=== PATIENT | male | born 1955 ===

== ENCOUNTER 2019-04-04 15:01 | Inpatient (IN) | payer MEDICARE ==
[~2019-04-04 15:01] MED LIST: Benzocaine 20% Spray 60 ML CAN ONE
[2019-04-04 15:18] LABS: Actual Bicarbonate (HCO3a) 21.2 mEq/L (22-28); Analyzer IN Cardio ER; Base Excess (BEa) -3.9 mEq/L (-2.0 to +3.0); CO2 Tension 39.1 mmHg (35.0-45.0); Calcium, Ionized 1.13 mmol/L (1.12-1.30); Carboxyhemoglobin (COHb) 1.9 gm% (0.0-3.0); Hemoglobin (Hb) 13.8 g/dL (14.0-18.0); O2 Tension (PaO2) 81.5 mmHg (> 80.0); Potassium - ABG Lab 3.26 mmol/L (3.70-5.30); pH, Arterial 7.35 (7.35-7.45)
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
[2019-04-04 15:22] LABS: #Eosinphils 0.1 thou/uL (0.0-0.7); #Lymphocytes 0.9 thou/uL (1.20-3.40); #Monocytes 0.2 thou/uL (0.11-0.59); #Neutrophils 3.3 thou/uL (1.40-6.50); %Basophils 0.3 % (0.0-1.0); %Eosinophils 1.5 % (0.0-10.0); %Neutrophils 74.2 % (42.0-75.0); Hemoglobin 13.4 g/dL (14.0-18.0); Mean Corpuscular Hemoglobin 35.3 pg (27.0-31.0); Mean Platelet Volume 7.7 fL (7.4-10.4); Platelet Count 120 thou/uL (130-400); RBC Distribution Width 13.6 % (11.5-14.5); Red Blood Cell (RBC) Count 3.81 mill/uL (4.70-6.10); White Blood Cell (WBC) Count 4.4 thou/uL (4.8-10.8)
[2019-04-04 15:22] LABS: Puncture Site RRA
[2019-04-04 15:23] LABS: ALV-art Gradient 97.785 (0-20)
[2019-04-04 15:44] LABS: ALT (SGPT) 31 U/L (8-55); AST (SGOT) 64 U/L (5-34); Albumin 3.2 g/dL (3.4-4.8); Alcohol 306 mg/dL (Less than 10); Alkaline Phosphatase 73 U/L (40-150); Anion Gap 16 mmol/L (10-20); BUN (Urea Nitrogen) 9 mg/dL (8.4-25.7); Bilirubin, Total 1.6 mg/dL (0.2-1.2); CK (CPK) 278 U/L (30-200); Calc. Creatinine Clearance 0 mL/min (70-130); Calcium 8.9 mg/dL (7.8-10.44); Carbon Dioxide 20 mmol/L (23-31); Chloride 101 mmol/L (98-107); Estimated GFR-MDRD 72; Globulin 3.4 g/dL (2.4-3.5); Glucose 129 mg/dL (80-115); Potassium 3.3 mmol/L (3.5-5.1); Protein, Total 6.6 g/dL (5.8-8.1); Sodium 134 mmol/L (136-145)
[2019-04-04] MEDS ORDERED: Acetaminophen 325 MG/10.15 ML UDCUP PO PRN (16:28)
[2019-04-04] MEDS ORDERED: CCU Electrolyte Replacement 1 EACH IVPB ONE (16:28)
[2019-04-04] MEDS ORDERED: Bisacodyl 5 MG TAB PO PRN (16:28)
[2019-04-04] MEDS ORDERED: Potassium Chloride 20 MEQ TAB PO PRN (17:31)
[2019-04-04] MEDS ORDERED: Magnesium 2 GM/50 ML 2 GM in Premix Bag 1 BAG IVPB PRN (17:31)
[2019-04-04] MEDS ORDERED: Potassium Chloride 40 MEQ in Sodium Chloride 0.9% 250 ML 250 ML IVPB PRN (17:31)
[2019-04-04] MEDS ORDERED: Potassium Phosphate 15 MMOL in Sodium Chloride 0.9% 250 ML 250 ML IV PRN (17:31)
[2019-04-04] MEDS ORDERED: Potassium Phosphate 9 MMOL in Sodium Chloride 0.9% 100 ML IVPB PRN (17:31)
[2019-04-04] MEDS ORDERED: Potassium Phosphate 12 MMOL in Sodium Chloride 0.9% 250 ML 250 ML IV PRN (17:31)
[2019-04-04] MEDS ORDERED: Potassium Chloride 40 MEQ in Premix Bag 1 BAG IVPB PRN (17:31)
[2019-04-04] MEDS ORDERED: PHOS-NAK 1 PKT PACK PO PRN ×2 (17:31)
[2019-04-04] MEDS ORDERED: Magnesium Oxide 400 MG TAB PO PRN ×2 (17:31)
[2019-04-04] MEDS: Sodium Chloride 0.9% 1,000 ML IV SCH (18:00)
[2019-04-04] MEDS: Piperacillin/Tazobactam 4.5 GM in Sodium Chloride 0.9% 100 ML IVPB SCH ×2 (19:23→23:37)
[2019-04-04 20:16] LABS: Lactic Acid 3.9 mmol/L (0.5-2.2)
[2019-04-04] MEDS ORDERED: Acetaminophen 650 MG Suppository PR PRN (23:31)
[2019-04-04] MEDS: Vancomycin HCl 1 GM in Premix Bag 1 BAG IVPB SCH (23:38)
[2019-04-04] MEDS: Famotidine/PF 20 mg/2ml Vial SLOW IVP SCH (23:38)
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
[2019-04-05] MEDS: Piperacillin/Tazobactam 4.5 GM in Sodium Chloride 0.9% 100 ML IVPB SCH ×4 (06:29→23:41)
[2019-04-05 06:33] LABS: ALT (SGPT) 30 U/L (8-55); AST (SGOT) 58 U/L (5-34); Albumin 2.8 g/dL (3.4-4.8); Alkaline Phosphatase 42 U/L (40-150); Anion Gap 14 mmol/L (10-20); BUN (Urea Nitrogen) 11 mg/dL (8.4-25.7); Bilirubin, Total 2.4 mg/dL (0.2-1.2); Calc. Creatinine Clearance 116 mL/min (70-130); Calcium 8.1 mg/dL (7.8-10.44); Carbon Dioxide 17 mmol/L (23-31); Chloride 107 mmol/L (98-107); Estimated GFR-MDRD 84; Globulin 2.7 g/dL (2.4-3.5); Glucose 149 mg/dL (80-115); Potassium 3.9 mmol/L (3.5-5.1); Protein, Total 5.5 g/dL (5.8-8.1); Sodium 134 mmol/L (136-145)
[2019-04-05] MEDS: Famotidine/PF 20 mg/2ml Vial SLOW IVP SCH ×2 (09:51→20:48)
[2019-04-05] MEDS: Enoxaparin Sodium 40 MG/0.4 ML SYRINGE SC SCH (09:52)
[2019-04-05] MEDS: Vancomycin HCl 1 GM in Premix Bag 1 BAG IVPB SCH ×2 (09:53→20:47)
--- NOTE | 2019-04-05 13:48 | PDOC.PN ---
- Subjective Encounter Start Date: 04/05/19 Encounter Start Time: 10:15 Subjective: pt up in chair wants to go home - Objective Resuscitation Status - Order Detail: 04/04/19 17:50 Resuscitation Status Routine Resuscitation Status: FULL: Full Resuscitation Vital Signs & Weight: Vital Signs (12 hours) Temp Pulse Resp Pulse Ox 04/05/19 12:49 81 24 H 100 04/05/19 12:00 98.6 F 04/05/19 08:00 98.8 F 20 04/05/19 07:41 100 04/05/19 06:23 90 100 04/05/19 06:21 80 20 100 04/05/19 06:00 22 H 04/05/19 04:00 99.3 F 20 04/05/19 02:00 21 H Weight Admit Weight 217 lb 9.54 oz Weight 219 lb 15.834 oz Most Recent Monitor Data Heart Rate from ECG 85 NIBP 128/61 NIBP BP-Mean 83 Respiration from ECG 19 SpO2 100 I&O: 04/04/19 04/05/19 04/06/19 06:59 06:59 06:59 Intake Total 1307 720 Output Total 475 200 Balance 832 520 Result Diagrams: 04/04/19 15:09 04/05/19 05:43 Phys Exam - Physical Examination Neck: no nodes, no JVD, supple, full ROM Respiratory: no wheezing, no rales, no rhonchi, wheezing present, clear to auscultation bilateral Cardiovascular: RRR, no significant murmur, no rub, gallop, irregular Gastrointestinal: soft, non-tender, no distention, positive bowel sounds Dx/Plan (1) Acute respiratory failure with hypoxia Code(s): J96.01 - ACUTE RESPIRATORY FAILURE WITH HYPOXIA Status: Acute (2) Aspiration pneumonia Code(s): J69.0 - PNEUMONITIS DUE TO INHALATION OF FOOD AND VOMIT Status: Acute (3) Elevated LFTs Code(s): R94.5 - ABNORMAL RESULTS OF LIVER FUNCTION STUDIES Status: Acute (4) Alcohol abuse Code(s): F10.10 - ALCOHOL ABUSE, UNCOMPLICATED Status: Acute - Plan will continue iv abx for now -: pt wants to go home, i do not think he is ready -: will continue to monitor. pt states he has been dx with cirrhosis many -: years back. * . Review of Systems - Review of Systems Respiratory: negative: Cough, Dry, Shortness of Breath, Hemoptysis, SOB with Excertion, Pleuritic Pain, Sputum, Wheezing Cardiovascular: negative: chest pain, palpitations, orthopnea, paroxysmal nocturnal dyspnea, edema, light headedness, other - Medications/Allergies Allergies/Adverse Reactions: Allergies Allergy/AdvReac Type Severity Reaction Status Date / Time No Known Allergies Allergy Verified 04/04/19 20:52 Medications: Current Medications Acetaminophen (Tylenol Elixir) 650 mg PO Q6H PRN PRN Reason: Fever > 101 or Mild Pain Acetaminophen (Tylenol) 650 mg PO Q4H PRN PRN Reason: Headache/Fever/Mild Pain (1-3) Acetaminophen (Tylenol) 650 mg MI Q4H PRN PRN Reason: Headache/Fever or Pain Albuterol/Ipratropium (Duoneb) 3 ml NEB [id number] PRN PRN Reason: SOB &/or Wheezing Albuterol/Ipratropium (Duoneb) 3 ml NEB [id number] [facility] Last Admin: 04/05/19 12:49 Dose: 3 ml Alprazolam (Xanax) 0.25 mg PO NOW [facility] Stop: 04/05/19 16:00 Bisacodyl (Dulcolax) 10 mg PO DAILYPRN PRN PRN Reason: Constipation Enoxaparin Sodium (Lovenox) 40 mg SC 0900 [facility] Last Admin: 04/05/19 09:52 Dose: 40 mg Famotidine (Pepcid) 20 mg SLOW IVP Q12HR [facility] Last Admin: 04/05/19 09:51 Dose: 20 mg Piperacillin Sod/Tazobactam (Sod 4.5 gm/ Sodium Chloride) 100 mls @ 200 mls/hr IVPB Q6HR [facility] Last Admin: 04/05/19 12:16 Dose: 100 mls Vancomycin HCl 1 gm/ Device 200 mls @ 200 mls/hr IVPB Q12HR [facility] Last Admin: 04/05/19 09:53 Dose: 200 mls Potassium Chloride 40 meq/ (Sodium Chloride) 270 mls @ 135 mls/hr IVPB ASDIR PRN PRN Reason: FOR SERUM K+ 2.5 - 3.5 Potassium Chloride 40 meq/ (Device) 100 mls @ 50 mls/hr IVPB ASDIR PRN PRN Reason: FOR SERUM K+ 2.5 - 3.5 Magnesium Sulfate 1 gm/ Sodium (Chloride) 102 mls @ 102 mls/hr IV PRN PRN PRN Reason: MAG LEVEL 1.4 - 2.0 Magnesium Sulfate 2 gm/ Device 50 mls @ 50 mls/hr IVPB ASDIR PRN PRN Reason: MAGNESIUM < 1.4 Potassium Phosphate 9 mmol/ (Sodium Chloride) 103 mls @ 25.75 mls/hr IVPB ASDIR PRN PRN Reason: Phosphate 1.0-1.8 Potassium Phosphate 12 mmol/ (Sodium Chloride) 254 mls @ 63.5 mls/hr IV ASDIR PRN PRN Reason: Serum phosphate 0.5-0.9 Potassium Phosphate 15 mmol/ (Sodium Chloride) 255 mls @ 63.75 mls/hr IV ASDIR PRN PRN Reason: Serum Phos < 0.5 Sodium Chloride (Normal Saline 0.9%) 1,000 mls @ 50 mls/hr IV .Q20H [facility] Last Admin: 04/04/19 18:00 Dose: 1,000 mls Magnesium Oxide (Magnesium Oxide) 400 mg PO BIDPRN PRN PRN Reason: FOR SERUM MAG 1.4 - 2.0 Magnesium Oxide (Magnesium Oxide) 800 mg PO PRN PRN PRN Reason: FOR SERUM MAG < 1.4 Miscellaneous Medication (Phos-Nak) 1 pkt PO TIDPRN PRN PRN Reason: FOR PHOS LEVEL 1.0 - 1.8 Miscellaneous Medication (Phos-Nak) 2 pkt PO TIDPRN PRN PRN Reason: FOR PHOS LEVEL 0.5 - 1.0 Nicotine (Nicoderm Patch) 14 mg TD Q24HR [facility] Potassium Chloride (K-Dur) 40 meq PO ASDIR PRN PRN Reason: FOR SERUM K+ 2.5 - 3.5 Potassium Chloride (Klor-Con) 40 meq PER TUBE ASDIR PRN PRN Reason: FOR SERUM K+ 2.5-3.5
[2019-04-05] MEDS ORDERED: ALPRAZolam 0.25 MG TAB PO SCH (14:00)
[2019-04-05] MEDS: Nicotine 14 MG PATCH TD SCH (14:44)
[2019-04-05] MEDS: Sodium Chloride 0.9% 1,000 ML IV SCH (14:48)
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
[2019-04-05] MEDS: Acetaminophen 325 MG TAB PO PRN (20:06)
[2019-04-05] MEDS ORDERED: Lorazepam 1 MG TAB PO PRN (22:52)
[2019-04-05] MEDS: Chloraseptic Spray 180 ml Bottle PO PRN (23:42)
[2019-04-06] MEDS: Sodium Chloride 0.9% 1,000 ML IV SCH ×2 (02:49→14:08)
[2019-04-06] MEDS: Piperacillin/Tazobactam 4.5 GM in Sodium Chloride 0.9% 100 ML IVPB SCH ×4 (06:06→23:59)
[2019-04-06] MEDS ORDERED: Lorazepam 2 MG/ML VIAL SLOW IVP PRN (06:41)
[2019-04-06 06:58] LABS: ALT (SGPT) 26 U/L (8-55); AST (SGOT) 55 U/L (5-34); Albumin 2.6 g/dL (3.4-4.8); Alkaline Phosphatase 39 U/L (40-150); Anion Gap 12 mmol/L (10-20); BUN (Urea Nitrogen) 14 mg/dL (8.4-25.7); Bilirubin, Total 3.6 mg/dL (0.2-1.2); Calc. Creatinine Clearance 130 mL/min (70-130); Calcium 8.2 mg/dL (7.8-10.44); Carbon Dioxide 20 mmol/L (23-31); Chloride 103 mmol/L (98-107); Estimated GFR-MDRD Greater than 90; Globulin 2.8 g/dL (2.4-3.5); Glucose 129 mg/dL (80-115); Potassium 3.6 mmol/L (3.5-5.1); Protein, Total 5.4 g/dL (5.8-8.1); Sodium 131 mmol/L (136-145)
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
[2019-04-06] MEDS: Vancomycin HCl 1 GM in Premix Bag 1 BAG IVPB SCH ×2 (08:53→21:52)
[2019-04-06] MEDS: Enoxaparin Sodium 40 MG/0.4 ML SYRINGE SC SCH (08:53)
[2019-04-06] MEDS: Spironolactone 100 MG TAB PO SCH (08:53)
[2019-04-06] MEDS: Famotidine/PF 20 mg/2ml Vial SLOW IVP SCH ×2 (08:53→21:53)
[2019-04-06] MEDS: Furosemide 40 MG TAB PO SCH (08:53)
[2019-04-06] MEDS: Chloraseptic Spray 180 ml Bottle PO PRN (09:12)
[2019-04-06 12:00] LABS: Actual Bicarbonate (HCO3a) 19.6 mEq/L (22-28); Base Excess (BEa) -2.9 mEq/L (-2.0 to +3.0); Hemoglobin (Hb) 12.6 g/dL (14.0-18.0); Potassium - ABG Lab 3.68 mmol/L (3.70-5.30); pH, Arterial 7.46 (7.35-7.45)
[2019-04-06 12:01] LABS: O2 Tension (PaO2) 47.1 mmHg (> 80.0)
[2019-04-06 12:02] LABS: Puncture Site RBA
[2019-04-06] MEDS ORDERED: Furosemide 20 MG/2 ML VIAL SLOW IVP SCH (12:30)
[2019-04-06] MEDS ORDERED: Propofol 1,000 MG/100 ML VIAL IV ONE ×2 (12:43→14:05)
[2019-04-06] MEDS ORDERED: Midazolam HCl 2 mg/2 ml Vial ONE ×2 (12:53→13:14)
[2019-04-06] MEDS ORDERED: Rocuronium Bromide 10 MG/ML (10ML VIAL) ONE (13:22)
[2019-04-06 14:38] LABS: Actual Bicarbonate (HCO3a) 22.8 mEq/L (22-28); Base Excess (BEa) -4.9 mEq/L (-2.0 to +3.0); CO2 Tension 52.7 mmHg (35.0-45.0); Calcium, Ionized 1.15 mmol/L (1.12-1.30); Carboxyhemoglobin (COHb) 1.7 gm% (0.0-3.0); O2 Tension (PaO2) 65.7 mmHg (> 80.0); Potassium - ABG Lab 3.57 mmol/L (3.70-5.30)
[2019-04-06 14:45] LABS: pH, Arterial 7.25 (7.35-7.45)
[2019-04-06] MEDS ORDERED: Propofol BOLUS 1,000 MG/100 ML VIAL IV PRN (14:45)
[2019-04-06] MEDS ORDERED: DISCONTINUE PREVIOUS NARCOTIC PAIN MEDICATIONS AND BENZODIAZEPINES FS SCH (14:45)
[2019-04-06] MEDS ORDERED: Fentanyl BOLUS 250 ML IVPB PRN (14:45)
[2019-04-06] MEDS ORDERED: Morphine 2 MG/ML SYRINGE SLOW IVP PRN (14:45)
[2019-04-06 14:46] LABS: ALV-art Gradient 224.925 (0-20); Puncture Site RR
[2019-04-06] MEDS: Lorazepam 2 MG/ML VIAL SLOW IVP PRN (14:49)
[2019-04-06] MEDS ORDERED: Propofol 1,000 MG/100 ML VIAL IV PRN (16:06)
[2019-04-06] MEDS ORDERED: Midazolam HCl 2 mg/2 ml Vial IVP SCH (16:15)
[2019-04-06] MEDS ORDERED: Rocuronium Bromide 50 MG/5 ML VIAL IVP SCH (16:15)
[2019-04-06] MEDS ORDERED: Sodium Chloride 0.9% 2,000 ML IV SCH (16:15)
[2019-04-06] MEDS: Albumin 25% 25 GM/100 ML BOT IVPB SCH ×2 (17:08→23:59)
[2019-04-06] MEDS: fentaNYL Citrate/PF 2,000 MCG in Sodium Chloride 0.9% 60 ML IV SCH (17:18)
[2019-04-06] MEDS: Nicotine 14 MG PATCH TD SCH (17:38)
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
[2019-04-06] MEDS: Acetaminophen 325 MG TAB PO PRN (23:59)
[2019-04-07] MEDS: Propofol 1,000 MG/100 ML VIAL IV PRN (01:40)
[2019-04-07] MEDS ORDERED: Amiodarone 150 MG, Admixture Fee 1 EACH in Dextrose 5% in Water 100 ML IVPB SCH (02:45)
[2019-04-07 02:56] LABS: Band 16 % (5-11); Eosinophils 1 % (0-10); Lymphocytes 9 % (21-51); MDiff Complete? YES; Mean Corpuscular Hemoglobin 35.6 pg (27.0-31.0); Mean Platelet Volume 7.5 fL (7.4-10.4); Monocytes 1 % (0-10); Neutrophil 73 % (42-75); Platelet Count 52 thou/uL (130-400); Platelet Morphology Comment Appears Decreased; RBC Distribution Width 13.9 % (11.5-14.5); Red Blood Cell (RBC) Count 2.82 mill/uL (4.70-6.10); White Blood Cell (WBC) Count 5.6 thou/uL (4.8-10.8)
[2019-04-07] MEDS ORDERED: Magnesium 2 GM/50 ML 2 GM in Premix Bag 1 BAG IVPB SCH (03:00)
[2019-04-07] MEDS ORDERED: Sodium Chloride 0.9% 1,000 ML IV SCH (03:00)
[2019-04-07] MEDS: Amiodarone 450 MG, Admixture Fee 1 EACH in Dextrose 5% in Water 250 ML IVPB SCH (03:05)
[2019-04-07 03:06] LABS: Troponin I 0.016 ng/mL (< 0.028)
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
[2019-04-07] MEDS: Sodium Chloride 0.9% 1,000 ML IV SCH ×3 (03:13→14:23)
[2019-04-07 03:15] LABS: Lactic Acid 1.6 mmol/L (0.5-2.2)
[2019-04-07 03:15] LABS: ALT (SGPT) 18 U/L (8-55); AST (SGOT) 40 U/L (5-34); Albumin 2.9 g/dL (3.4-4.8); Alkaline Phosphatase 26 U/L (40-150); Anion Gap 12 mmol/L (10-20); BUN (Urea Nitrogen) 17 mg/dL (8.4-25.7); Bilirubin, Total 3.9 mg/dL (0.2-1.2); Calc. Creatinine Clearance 126 mL/min (70-130); Carbon Dioxide 21 mmol/L (23-31); Chloride 104 mmol/L (98-107); Estimated GFR-MDRD 89; Globulin 2.4 g/dL (2.4-3.5); Glucose 99 mg/dL (80-115); Potassium 3.2 mmol/L (3.5-5.1); Protein, Total 5.3 g/dL (5.8-8.1); Sodium 134 mmol/L (136-145)
[2019-04-07] MEDS: Piperacillin/Tazobactam 4.5 GM in Sodium Chloride 0.9% 100 ML IVPB SCH ×3 (05:37→17:43)
[2019-04-07] MEDS: Albumin 25% 25 GM/100 ML BOT IVPB SCH ×2 (05:37→11:01)
[2019-04-07 07:05] LABS: Actual Bicarbonate (HCO3a) 22.7 mEq/L (22-28); Base Excess (BEa) -2.5 mEq/L (-2.0 to +3.0); CO2 Tension 41.1 mmHg (35.0-45.0); Carboxyhemoglobin (COHb) 1.7 gm% (0.0-3.0); Hemoglobin (Hb) 10.6 g/dL (14.0-18.0); O2 Tension (PaO2) 74.9 mmHg (> 80.0); Potassium - ABG Lab 3.93 mmol/L (3.70-5.30); pH, Arterial 7.36 (7.35-7.45)
[2019-04-07 07:06] LABS: Puncture Site L.R.
[2019-04-07 07:07] LABS: ALV-art Gradient 444.125 (0-20)
[2019-04-07] MEDS: Enoxaparin Sodium 40 MG/0.4 ML SYRINGE SC SCH (08:19)
[2019-04-07] MEDS: Spironolactone 100 MG TAB PO SCH (08:22)
[2019-04-07] MEDS: Furosemide 40 MG TAB PO SCH (08:23)
[2019-04-07] MEDS: Famotidine/PF 20 mg/2ml Vial SLOW IVP SCH ×2 (08:23→20:49)
[2019-04-07] MEDS: Vancomycin HCl 1 GM in Premix Bag 1 BAG IVPB SCH ×2 (08:23→20:49)
--- NOTE | 2019-04-07 08:49 | RAD ---
CHEST 1 VIEW: HISTORY: Aspiration. Intubation. Followup. FINDINGS: Cardiac silhouette remains predominantly obscured by widespread airspace disease. Density has increa sed slightly. Mediastinum is midline with aortic calcification. The tip of an endotracheal catheter is at the level of the anna. Nasogastric tube descends to the abdomen. No evidence of pneumothorax. Degenerative change of the shoulders. IMPRESSION: 1. Endotracheal catheter tip at the anna. It should probably be withdrawn approximately 3 cm for better positioning. 2. Worsening widespread airspace disease/infiltrate. POS: [facility]
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
[2019-04-07] MEDS: fentaNYL Citrate/PF 2,000 MCG in Sodium Chloride 0.9% 60 ML IV SCH (10:51)
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
[2019-04-07] MEDS: Lorazepam 2 MG/ML VIAL SLOW IVP PRN (15:05)
--- NOTE | 2019-04-07 20:02 | EKG ---
Test Reason : Blood Pressure : / mmHG Vent. Rate : 148 BPM Atrial Rate : 148 BPM P-R Int : 000 ms QRS Dur : 086 ms QT Int : 308 ms P-R-T Axes : -09 -35 056 degrees QTc Int : 483 ms Sinus tachycardia with Premature supraventricular complexes Left axis deviation Abnormal ECG No previous ECGs available Confirmed by MADELYN PRECIADO, DR. Cornejo ([id number]) on 04/07/2019 8:02:19 PM Referred By: Confirmed By:DR. Chantal JOSHI MD
--- NOTE | 2019-04-07 20:04 | EKG ---
Test Reason : Blood Pressure : / mmHG Vent. Rate : 147 BPM Atrial Rate : 136 BPM P-R Int : 000 ms QRS Dur : 086 ms QT Int : 268 ms P-R-T Axes : 000 -29 144 degrees QTc Int : 419 ms Atrial fibrillation with rapid ventricular response with premature ventricular or aberrantly conducte d complexes ST depression, consider subendocardial injury or digitalis effect Nonspecific T wave abnormality , probably digitalis effect Abnormal ECG When compared with ECG of 06-APR-2019 14:34, (Unconfirmed) Atrial fibrillation has replaced Sinus rhythm ST more depressed in Anterior leads Nonspecific T wave abnormality, worse in Anterolateral leads Confirmed by MADELYN PRECIADO, DR. Cornejo ([id number]) on 04/07/2019 8:03:50 PM Referred By: MELQUIADES Confirmed By:DR. Chantal JOSHI MD
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
[2019-04-08] MEDS: Sodium Chloride 0.9% 1,000 ML IV SCH ×3 (00:09→20:59)
[2019-04-08] MEDS: Piperacillin/Tazobactam 4.5 GM in Sodium Chloride 0.9% 100 ML IVPB SCH ×3 (00:09→11:57)
[2019-04-08] MEDS: Amiodarone 450 MG, Admixture Fee 1 EACH in Dextrose 5% in Water 250 ML IVPB SCH ×2 (00:10→11:57)
[2019-04-08] MEDS: Propofol 1,000 MG/100 ML VIAL IV PRN ×2 (02:08→23:39)
[2019-04-08 04:24] LABS: ALT (SGPT) 16 U/L (8-55); AST (SGOT) 50 U/L (5-34); Albumin 3.1 g/dL (3.4-4.8); Alkaline Phosphatase 21 U/L (40-150); Anion Gap 12 mmol/L (10-20); BUN (Urea Nitrogen) 27 mg/dL (8.4-25.7); Bilirubin, Total 7.8 mg/dL (0.2-1.2); Calc. Creatinine Clearance 91 mL/min (70-130); Calcium 8.1 mg/dL (7.8-10.44); Carbon Dioxide 21 mmol/L (23-31); Chloride 105 mmol/L (98-107); Estimated GFR-MDRD 59; Globulin 2.4 g/dL (2.4-3.5); Glucose 127 mg/dL (80-115); Protein, Total 5.5 g/dL (5.8-8.1); Sodium 134 mmol/L (136-145)
[2019-04-08 04:46] LABS: Band 22 % (5-11); Hemoglobin 9.8 g/dL (14.0-18.0); Lymphocytes 6 % (21-51); MDiff Complete? YES; Mean Corpuscular HGB CONC 33.6 g/dL (32.0-36.0); Mean Corpuscular Hemoglobin 35.7 pg (27.0-31.0); Mean Platelet Volume 7.6 fL (7.4-10.4); Monocytes 6 % (0-10); Myelocyte 1 % (0-0); Neutrophil 65 % (42-75); Platelet Count 57 thou/uL (130-400); Platelet Morphology Comment Appears Decreased; RBC Distribution Width 14.2 % (11.5-14.5); Red Blood Cell (RBC) Count 2.73 mill/uL (4.70-6.10); White Blood Cell (WBC) Count 6.5 thou/uL (4.8-10.8)
[2019-04-08] MEDS: Lorazepam 2 MG/ML VIAL SLOW IVP PRN ×3 (07:16→16:20)
[2019-04-08 07:33] LABS: Actual Bicarbonate (HCO3a) 18.5 mEq/L (22-28); Base Excess (BEa) -8.1 mEq/L (-2.0 to +3.0); CO2 Tension 42.2 mmHg (35.0-45.0); Calcium, Ionized 1.12 mmol/L (1.12-1.30); Hemoglobin (Hb) 10.1 g/dL (14.0-18.0); O2 Tension (PaO2) 58.4 mmHg (> 80.0); Potassium - ABG Lab 3.96 mmol/L (3.70-5.30); Puncture Site L.R.; pH, Arterial 7.26 (7.35-7.45)
--- NOTE | 2019-04-08 07:56 | RAD ---
XR Chest 1 View Portable History: [Intubation] Comparison: Radiograph prior day Findings: The patient is intubated with endotracheal tube tip above the anna approximately 1.2 cm. The enteric tube space with tip below diaphragm of the out of field of view. Diffuse airspace opacities are worse. Large effusions. The cardiac silhouette is not well seen. No acute osseous abnormality. Impression: Worsening diffuse airspace opacities which given history suggests noncardiogenic pulmonar y edema.
[2019-04-08 08:27] LABS: Phosphorus 2.8 mg/dL (2.3-4.7)
[2019-04-08] MEDS: Famotidine/PF 20 mg/2ml Vial SLOW IVP SCH ×2 (08:42→20:59)
[2019-04-08] MEDS: Enoxaparin Sodium 40 MG/0.4 ML SYRINGE SC SCH (08:42)
[2019-04-08] MEDS: Vancomycin HCl 1 GM in Premix Bag 1 BAG IVPB SCH ×2 (08:48→20:59)
[2019-04-08] MEDS: fentaNYL Citrate/PF 2,000 MCG in Sodium Chloride 0.9% 60 ML IV SCH (11:32)
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
[2019-04-08] MEDS: Rocuronium Bromide 10 MG/ML (10ML VIAL) IVP PRN (17:50)
[2019-04-08] MEDS: methylPREDNISolone Sod Succ 40 MG VIAL IVP SCH ×2 (18:38→23:39)
[2019-04-08 20:43] LABS: Vancomycin, Trough 22.6 ug/mL
[2019-04-08] MEDS: Meropenem 2 GM in Sodium Chloride 0.9% 100 ML IVPB SCH (21:56)
[2019-04-09] MEDS: Rocuronium Bromide 10 MG/ML (10ML VIAL) IVP PRN ×6 (01:24→23:41)
[2019-04-09 04:20] LABS: ALT (SGPT) 18 U/L (8-55); AST (SGOT) 49 U/L (5-34); Albumin 2.9 g/dL (3.4-4.8); Alkaline Phosphatase 24 U/L (40-150); Anion Gap 15 mmol/L (10-20); BUN (Urea Nitrogen) 47 mg/dL (8.4-25.7); Bilirubin, Total 11.7 mg/dL (0.2-1.2); Calc. Creatinine Clearance 70 mL/min (70-130); Calcium 8.5 mg/dL (7.8-10.44); Carbon Dioxide 18 mmol/L (23-31); Chloride 106 mmol/L (98-107); Estimated GFR-MDRD 42; Globulin 2.7 g/dL (2.4-3.5); Glucose 151 mg/dL (80-115); Protein, Total 5.6 g/dL (5.8-8.1); Sodium 135 mmol/L (136-145)
[2019-04-09] MEDS: methylPREDNISolone Sod Succ 40 MG VIAL IVP SCH ×4 (05:43→23:41)
[2019-04-09] MEDS: Sodium Chloride 0.9% 1,000 ML IV SCH (05:43)
[2019-04-09] MEDS: Meropenem 2 GM in Sodium Chloride 0.9% 100 ML IVPB SCH ×3 (06:04→21:38)
[2019-04-09 06:36] LABS: Actual Bicarbonate (HCO3a) 18.8 mEq/L (22-28); Base Excess (BEa) -7.6 mEq/L (-2.0 to +3.0); CO2 Tension 41.6 mmHg (35.0-45.0); Calcium, Ionized 1.15 mmol/L (1.12-1.30); Carboxyhemoglobin (COHb) 1.7 gm% (0.0-3.0); Hemoglobin (Hb) 10.6 g/dL (14.0-18.0); O2 Tension (PaO2) 83.6 mmHg (> 80.0); Potassium - ABG Lab 3.98 mmol/L (3.70-5.30); pH, Arterial 7.27 (7.35-7.45)
[2019-04-09 06:37] LABS: Puncture Site RRA
[2019-04-09] MEDS: Lorazepam 2 MG/ML VIAL SLOW IVP PRN (07:35)
[2019-04-09] MEDS: Famotidine/PF 20 mg/2ml Vial SLOW IVP SCH ×2 (07:37→07:38)
[2019-04-09] MEDS: Amiodarone 450 MG, Admixture Fee 1 EACH in Dextrose 5% in Water 250 ML IVPB SCH ×2 (07:50→20:38)
[2019-04-09] MEDS: fentaNYL Citrate/PF 2,000 MCG in Sodium Chloride 0.9% 60 ML IV SCH (07:57)
--- NOTE | 2019-04-09 08:17 | RAD ---
XR Chest 1 View Portable History: [Intubated patient] Comparison: Radiograph prior day Findings: Patient is intubated endotracheal tube tip above the anna approximately 3.1 cm. Slight in terval improvement of the airspace opacities. Moderate to large layering pleural effusions. Heart size is similar. Enteric tube tip below diaphragm on the out of field of view. Impression: Mild interval improvement of lung aeration.
[2019-04-09] MEDS: Vancomycin HCl 1 GM in Premix Bag 1 BAG IVPB SCH (08:46)
[2019-04-09] MEDS: Enoxaparin Sodium 40 MG/0.4 ML SYRINGE SC SCH (08:49)
[2019-04-09 12:29] LABS: INR-International Normal Ratio 1.6; PTT 34.6 SEC (22.9-36.1); Prothrombin Time 19.3 SEC (12.0-14.7)
[2019-04-09] MEDS ORDERED: Acetaminophen 650 MG/20.3 ML UDCUP PO PRN (13:00)
[2019-04-09] MEDS ORDERED: Octreotide Acetate 1,250 MCG in Sodium Chloride 0.9% 250 ML 250 ML IVPB SCH (13:00)
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
[2019-04-09] MEDS ORDERED: Sodium Bicarbonate 75 MEQ in Sodium Chloride 0.45% 1,000 ML IV SCH (13:30)
[2019-04-09 13:37] LABS: Lactic Acid 1.9 mmol/L (0.5-2.2)
[2019-04-09 13:39] LABS: Vancomycin, Random 42.3 ug/mL (See Comment)
[2019-04-09] MEDS ORDERED: Furosemide 100 MG/10 ML VIAL SLOW IVP SCH (14:15)
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
[2019-04-09] MEDS: Midodrine HCl 5 MG TAB PO SCH (15:21)
[2019-04-09 17:38] LABS: Bilirubin Moderate (Negative); Blood, Urine Negative (Negative); Clarity CLOUDY (Clear); Glucose, Urine (Dipstick) Negative (Negative); Leukocyte Trace (Negative); Nitrite Negative (Negative); Protein, Urine (Dipstick) Negative (Neg-Trace); Urobilinogen 0.2 mg/dL (0.2-1.0); pH, Urine 5.5 (5.0-9.0)
[2019-04-09 17:40] LABS: Bacteria/HPF None Seen HPF (None Seen); Squamous Epithelial 0-3 HPF (0-3); WBC/HPF 0-3 HPF (0-3)
[2019-04-09 17:42] LABS: Hyaline Casts/LPF 0-3 HYALINE CAST LPF (0-3 Hyaline); Manual Microscopic Reviewed? No Path Casts Seen; Pathc Cast-AUWi Flag 6.66 (0-2.49)
[2019-04-09 17:43] LABS: Urine Culture Reflex Yes Yes
[2019-04-09 17:54] LABS: Legionella Urinary Ag Negative (Negative)
[2019-04-09 17:58] LABS: Creatinine, Urine 112.55 mg/dL (63-166); Protein, Urine Random Quant 22 mg/dL (1-14); Sodium, Urine Less than 20 mmol/L (Not Available); Urea Nitrogen, Random Urine 572 mg/dl
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
[2019-04-09] MEDS: Albumin 25% 25 GM/100 ML BOT IVPB SCH (20:36)
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
[2019-04-10] MEDS: fentaNYL Citrate/PF 2,000 MCG in Sodium Chloride 0.9% 60 ML IV SCH ×2 (04:07→23:51)
[2019-04-10 04:09] LABS: Phosphorus 2.1 mg/dL (2.3-4.7)
[2019-04-10 04:10] LABS: ALT (SGPT) 18 U/L (8-55); AST (SGOT) 47 U/L (5-34); Albumin 3.1 g/dL (3.4-4.8); Alkaline Phosphatase 26 U/L (40-150); Anion Gap 14 mmol/L (10-20); BUN (Urea Nitrogen) 69 mg/dL (8.4-25.7); Bilirubin, Total 12.8 mg/dL (0.2-1.2); Calc. Creatinine Clearance 69 mL/min (70-130); Calcium 8.9 mg/dL (7.8-10.44); Carbon Dioxide 20 mmol/L (23-31); Chloride 106 mmol/L (98-107); Estimated GFR-MDRD 40; Globulin 2.7 g/dL (2.4-3.5); Glucose 173 mg/dL (80-115); Magnesium 2.2 mg/dL (1.6-2.6); Protein, Total 5.8 g/dL (5.8-8.1); Sodium 137 mmol/L (136-145)
[2019-04-10 04:15] LABS: Potassium 2.9 mmol/L (3.5-5.1)
[2019-04-10] MEDS: Lorazepam 2 MG/ML VIAL SLOW IVP PRN ×2 (05:07→17:51)
[2019-04-10] MEDS: Rocuronium Bromide 10 MG/ML (10ML VIAL) IVP PRN ×2 (05:07→21:17)
[2019-04-10] MEDS: Propofol 1,000 MG/100 ML VIAL IV PRN (05:08)
[2019-04-10 05:15] LABS: Band 30 % (5-11); Hemoglobin 10.3 g/dL (14.0-18.0); Lymphocytes 6 % (21-51); MDiff Complete? YES; Macrocytosis SLIGHT = 6-15 cells (100X) (0-5/hpf); Mean Corpuscular HGB CONC 33.9 g/dL (32.0-36.0); Mean Corpuscular Hemoglobin 35.8 pg (27.0-31.0); Mean Platelet Volume 8.8 fL (7.4-10.4); Metamyelocyte 2 % (0-0); Monocytes 6 % (0-10); Myelocyte 1 % (0-0); Neutrophil 55 % (42-75); Nucleated RBC 2 % (0); Platelet Count 72 thou/uL (130-400); Platelet Morphology Comment Appears Decreased; Polychromasia SLIGHT = 2-3 cells (100X) (0-2/hpf); RBC Distribution Width 14.5 % (11.5-14.5); Red Blood Cell (RBC) Count 2.88 mill/uL (4.70-6.10); White Blood Cell (WBC) Count 5.9 thou/uL (4.8-10.8)
[2019-04-10] MEDS: Meropenem 2 GM in Sodium Chloride 0.9% 100 ML IVPB SCH ×3 (05:30→21:11)
[2019-04-10] MEDS: methylPREDNISolone Sod Succ 40 MG VIAL IVP SCH ×4 (05:30→23:29)
[2019-04-10 06:26] LABS: Actual Bicarbonate (HCO3a) 20.3 mEq/L (22-28); Base Excess (BEa) -2.7 mEq/L (-2.0 to +3.0); CO2 Tension 29.3 mmHg (35.0-45.0); Calcium, Ionized 1.16 mmol/L (1.12-1.30); Carboxyhemoglobin (COHb) 1.3 gm% (0.0-3.0); Hemoglobin (Hb) 10.9 g/dL (14.0-18.0); O2 Tension (PaO2) 69.6 mmHg (> 80.0); Potassium - ABG Lab 3.34 mmol/L (3.70-5.30); pH, Arterial 7.46 (7.35-7.45)
[2019-04-10 06:27] LABS: Puncture Site RRA
[2019-04-10 06:28] LABS: ALV-art Gradient 178.975 (0-20)
--- NOTE | 2019-04-10 08:05 | RAD ---
XR Chest 1 View Portable History: [Ventilated patient] Comparison: Radiograph prior day Findings: Continued mild improvement of the diffuse interstitial and alveolar opacities. Layering eff usions are slightly improved bilaterally although moderate effusion does persist. Endotracheal tube tip is in similar position. Enteric tube tip not well seen. Soft tissues are unremarkable. No acute osseous abnormality. Impression: 1. Continued interval improvement of lung aeration. 2. Nonvisualized and enteric tube tip. Abdomen radiograph recommended.
[2019-04-10] MEDS: Albumin 25% 25 GM/100 ML BOT IVPB SCH ×2 (08:55→20:06)
[2019-04-10] MEDS: Famotidine/PF 20 mg/2ml Vial SLOW IVP SCH ×2 (08:55→20:06)
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
[2019-04-10] MEDS ORDERED: Furosemide 100 MG/10 ML VIAL SLOW IVP SCH (10:15)
--- NOTE | 2019-04-10 10:36 | ULT ---
US Abdominal History: Biliary obstruction Comparison: Ultrasound abdomen November 2018 Findings: Real-time grayscale and color evaluation of the abdomen was performed. Visualized portion of pancreas and IVC are unremarkable. Proximal aorta measures up to 3 cm. The hepatic echotexture is coarsened with a nodular contour. Liver measures 16 cm in length. Gallbladder wall thickness is thickened, although circumferential, likely congestive changes. Portal vein has abnormal phasicity with diastolic reversal of flow. Common bile duct measures 5 mm. Right kidney measures 10 x 5.7 x 5 cm the left kidney measures 10.9 x 5.8 x 6.9 cm. Small volume free fluid within the pelvis. Urinary bladder is decompressed with a Coughlin catheter. Impression: 1. Hepatic cirrhosis and portal hypertension. 2. Small volume ascites. 3. Congestive changes of the gallbladder wall. 4. No intrahepatic or extrahepatic biliary dilatation.
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
[2019-04-10] MEDS: Amiodarone 450 MG, Admixture Fee 1 EACH in Dextrose 5% in Water 250 ML IVPB SCH (13:45)
[2019-04-10 16:56] LABS: Anion Gap 14 mmol/L (10-20); BUN (Urea Nitrogen) 77 mg/dL (8.4-25.7); Calc. Creatinine Clearance 79 mL/min (70-130); Calcium 8.5 mg/dL (7.8-10.44); Carbon Dioxide 20 mmol/L (23-31); Chloride 107 mmol/L (98-107); Estimated GFR-MDRD 47; Glucose 181 mg/dL (80-115); Potassium 3.3 mmol/L (3.5-5.1); Sodium 138 mmol/L (136-145)
[2019-04-10] MEDS ORDERED: Spironolactone 100 MG TAB PO SCH (19:45)
[2019-04-10] MEDS: Furosemide 40 MG/4 ML VIAL SLOW IVP SCH (20:06)
[2019-04-10] MEDS: Midodrine HCl 5 MG TAB PO SCH (20:32)
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
[2019-04-11] MEDS: Amiodarone 450 MG, Admixture Fee 1 EACH in Dextrose 5% in Water 250 ML IVPB SCH ×2 (02:28→17:24)
[2019-04-11] MEDS: methylPREDNISolone Sod Succ 40 MG VIAL IVP SCH ×3 (05:00→17:32)
[2019-04-11] MEDS: Meropenem 2 GM in Sodium Chloride 0.9% 100 ML IVPB SCH ×3 (05:00→21:30)
[2019-04-11] MEDS: Propofol 1,000 MG/100 ML VIAL IV PRN (05:01)
[2019-04-11 05:54] LABS: Band 23 % (5-11); Hemoglobin 10.1 g/dL (14.0-18.0); Lymphocytes 5 % (21-51); MDiff Complete? YES; Macrocytosis SLIGHT = 6-15 cells (100X) (0-5/hpf); Mean Corpuscular HGB CONC 34.1 g/dL (32.0-36.0); Mean Corpuscular Hemoglobin 35.8 pg (27.0-31.0); Mean Platelet Volume 8.7 fL (7.4-10.4); Metamyelocyte 2 % (0-0); Monocytes 5 % (0-10); Myelocyte 1 % (0-0); Neutrophil 64 % (42-75); Nucleated RBC 1 % (0); Platelet Count 73 thou/uL (130-400); Platelet Morphology Comment Appears Decreased; RBC Distribution Width 14.9 % (11.5-14.5); Red Blood Cell (RBC) Count 2.82 mill/uL (4.70-6.10); White Blood Cell (WBC) Count 6.6 thou/uL (4.8-10.8)
[2019-04-11 06:27] LABS: ALT (SGPT) 22 U/L (8-55); AST (SGOT) 52 U/L (5-34); Albumin 3.2 g/dL (3.4-4.8); Alkaline Phosphatase 30 U/L (40-150); Anion Gap 11 mmol/L (10-20); BUN (Urea Nitrogen) 78 mg/dL (8.4-25.7); Bilirubin, Total 12.5 mg/dL (0.2-1.2); Calc. Creatinine Clearance 78 mL/min (70-130); Calcium 8.7 mg/dL (7.8-10.44); Carbon Dioxide 25 mmol/L (23-31); Chloride 108 mmol/L (98-107); Estimated GFR-MDRD 48; Globulin 2.5 g/dL (2.4-3.5); Glucose 190 mg/dL (80-115); Potassium 3.1 mmol/L (3.5-5.1); Protein, Total 5.7 g/dL (5.8-8.1); Sodium 141 mmol/L (136-145)
[2019-04-11 06:34] LABS: Actual Bicarbonate (HCO3a) 23.7 mEq/L (22-28); Base Excess (BEa) -0.6 mEq/L (-2.0 to +3.0); CO2 Tension 37.6 mmHg (35.0-45.0); Calcium, Ionized 1.15 mmol/L (1.12-1.30); Carboxyhemoglobin (COHb) 1.3 gm% (0.0-3.0); Hemoglobin (Hb) 10.6 g/dL (14.0-18.0); O2 Tension (PaO2) 69.2 mmHg (> 80.0); Potassium - ABG Lab 3.19 mmol/L (3.70-5.30); pH, Arterial 7.42 (7.35-7.45)
[2019-04-11 06:35] LABS: Puncture Site RRA
[2019-04-11] MEDS: Spironolactone 100 MG TAB PO SCH (07:58)
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
[2019-04-11] MEDS: Famotidine/PF 20 mg/2ml Vial SLOW IVP SCH ×2 (09:23→21:25)
[2019-04-11] MEDS: Metoclopramide HCl 10 MG/2 ML VIAL IVP SCH ×3 (09:23→21:25)
[2019-04-11] MEDS: Furosemide 40 MG/4 ML VIAL SLOW IVP SCH ×2 (09:23→21:25)
[2019-04-11] MEDS: Enoxaparin Sodium 30 MG/0.3 ML SYRINGE SC SCH (09:24)
[2019-04-11] MEDS: Albumin 25% 25 GM/100 ML BOT IVPB SCH (09:36)
[2019-04-11] MEDS: Potassium Chloride 20 MEQ TAB PER TUBE SCH ×3 (09:36→21:25)
--- NOTE | 2019-04-11 09:55 | PRG ---
DATE OF SERVICE: 04/11/2019 A 35 minutes critical care time. SUBJECTIVE: The patient remains intubated on mechanical ventilation. He is currently receiving inverse ratios. OBJECTIVE: VITAL SIGNS: Temperature 98.1, pulse 61, blood pressure 141/70, and O2 saturation 97%. Intake for 24 hours 1315 and output 3065. NEUROLOGIC: He will open his eyes to commands. HEENT: Sclerae slightly icteric. Oropharynx, ET tube in place. NECK: No adenopathy or JVD. LUNGS: Coarse breath sounds bilaterally. CARDIOVASCULAR: S1 and S2. Regular. ABDOMEN: Obese, soft, and nontender. EXTREMITIES: Trace edema throughout. LABORATORY DATA: Sodium 141, potassium 3.1, chloride 108, CO2 of 25, BUN 78, creatinine 1.4, glucose 190, AST 52, ALT 22, total bilirubin is 12.5, and albumin 3.2. A pH of 7.42, pCO2 of 37, pO2 of 69 on bilevel 34/12 with an inspiratory time of 1.5 seconds making this inverse ratio ventilation. FiO2 currently set at 40%. White blood cell count 6.6, hematocrit 29.6, and platelet count 173. Chest x-ray shows bilateral infiltrative changes. ASSESSMENT: 1. Acute respiratory distress syndrome. 2. Acute respiratory failure requiring mechanical ventilation. 3. Intolerance to tube feeds. 4. Hyperbilirubinemia. 5. Cirrhosis. 6. Renal insufficiency. PLAN: 1. The patient will have his inspiratory time changed, so that we can bring his I:E ratio to 1:1 and see if he can tolerate that. 2. Continue steroids and meropenem. 3. Stop the albumin as I think he is probably getting fluid overloaded. 4. Added Reglan. 5. Continue supportive care otherwise. Prognosis remains very dismal. Job ID: [id number]
--- NOTE | 2019-04-11 09:55 | RAD ---
PORTABLE CHEST: DATE: 04/11/2019. PROVIDED CLINICAL HISTORY: Respiratory insufficiency. FINDINGS: Comparison 04/10/2019. Significant interval change with respect to the prior examination is not apparent. IMPRESSION: As above. POS: OFF
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
[2019-04-11] MEDS: Rocuronium Bromide 10 MG/ML (10ML VIAL) IVP PRN ×2 (13:54→15:25)
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
[2019-04-11] MEDS: fentaNYL Citrate/PF 2,000 MCG in Sodium Chloride 0.9% 60 ML IV SCH (19:58)
[2019-04-12] MEDS: methylPREDNISolone Sod Succ 40 MG VIAL IVP SCH ×5 (00:03→23:48)
[2019-04-12] MEDS: Lorazepam 2 MG/ML VIAL SLOW IVP PRN (00:04)
[2019-04-12] MEDS: Metoclopramide HCl 10 MG/2 ML VIAL IVP SCH ×4 (03:04→21:06)
[2019-04-12] MEDS ORDERED: hydrALAZINE 20 MG/ML VIAL SLOW IVP PRN (04:12)
[2019-04-12 04:13] LABS: ALT (SGPT) 28 U/L (8-55); AST (SGOT) 62 U/L (5-34); Albumin 3.2 g/dL (3.4-4.8); Alkaline Phosphatase 36 U/L (40-150); Anion Gap 14 mmol/L (10-20); BUN (Urea Nitrogen) 90 mg/dL (8.4-25.7); Bilirubin, Total 12.2 mg/dL (0.2-1.2); Calc. Creatinine Clearance 79 mL/min (70-130); Calcium 8.9 mg/dL (7.8-10.44); Carbon Dioxide 27 mmol/L (23-31); Chloride 107 mmol/L (98-107); Estimated GFR-MDRD 49; Globulin 3.1 g/dL (2.4-3.5); Glucose 218 mg/dL (80-115); Potassium 3.9 mmol/L (3.5-5.1); Protein, Total 6.3 g/dL (5.8-8.1); Sodium 144 mmol/L (136-145)
[2019-04-12 04:29] LABS: Band 8 % (5-11); Hemoglobin 11.2 g/dL (14.0-18.0); Lymphocytes 7 % (21-51); MDiff Complete? YES; Mean Corpuscular HGB CONC 33.2 g/dL (32.0-36.0); Mean Platelet Volume 8.3 fL (7.4-10.4); Monocytes 11 % (0-10); Myelocyte 1 % (0-0); Neutrophil 73 % (42-75); Nucleated RBC 3 % (0); Platelet Count 77 thou/uL (130-400); Platelet Morphology Comment Appears Decreased; RBC Distribution Width 15.3 % (11.5-14.5); Red Blood Cell (RBC) Count 3.21 mill/uL (4.70-6.10); White Blood Cell (WBC) Count 9.6 thou/uL (4.8-10.8)
[2019-04-12] MEDS: Meropenem 2 GM in Sodium Chloride 0.9% 100 ML IVPB SCH ×3 (06:50→21:48)
[2019-04-12 07:10] LABS: Actual Bicarbonate (HCO3a) 26.2 mEq/L (22-28); Base Excess (BEa) 3.7 mEq/L (-2.0 to +3.0); CO2 Tension 32.7 mmHg (35.0-45.0); Calcium, Ionized 1.17 mmol/L (1.12-1.30); Carboxyhemoglobin (COHb) 0.8 gm% (0.0-3.0); Hemoglobin (Hb) 11.5 g/dL (14.0-18.0); O2 Tension (PaO2) 93.5 mmHg (> 80.0); Potassium - ABG Lab 3.72 mmol/L (3.70-5.30); pH, Arterial 7.52 (7.35-7.45)
[2019-04-12 07:12] LABS: ALV-art Gradient 115.175 (0-20); Puncture Site RB
--- NOTE | 2019-04-12 07:53 | RAD ---
XR Chest 1 View Portable History: Ventilated patient Comparison: Radiograph prior day Findings: Heart size is enlarged. Anterior tube tip above the anna approximately 3 cm. Small effusi ons. Moderate edema. Edema has improved. Enteric tube tip below diaphragm although out of field of view. No acute osseous abnormality. Severe degenerative disease of right glenohumeral joint left ureter surface remodeling of the humeral head. Impression: Mild interval improvement in pulmonary edema.
[2019-04-12] MEDS: Enoxaparin Sodium 30 MG/0.3 ML SYRINGE SC SCH (08:03)
[2019-04-12] MEDS: Famotidine/PF 20 mg/2ml Vial SLOW IVP SCH ×2 (08:04→21:06)
[2019-04-12] MEDS: Furosemide 40 MG/4 ML VIAL SLOW IVP SCH (08:04)
[2019-04-12] MEDS: Spironolactone 100 MG TAB PO SCH (08:34)
[2019-04-12] MEDS: Amiodarone 450 MG, Admixture Fee 1 EACH in Dextrose 5% in Water 250 ML IVPB SCH (08:47)
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
--- NOTE | 2019-04-12 09:50 | PRG ---
DATE OF SERVICE: 04/12/2019 SUBJECTIVE: The patient remains intubated on mechanical ventilation. There has been no acute changes overnight. OBJECTIVE: VITAL SIGNS: Temperature is 97.7, pulse 64, blood pressure 110/72, 24-hour intake 1302, output 3540. HEENT: Remarkable for icteric sclera. NECK: No JVD. No thyromegaly. LUNGS: Coarse breath sounds. CARDIAC: S1, S2. Regular. ABDOMEN: Obese, soft, nontender. EXTREMITIES: Edematous. : Scrotum is edematous. LABORATORY DATA: ABG; pH 7.53, pCO2 of 33, pO2 of 93 on bilevel ventilator rate 24, high pressure 34, low pressure 12, FiO2 35%. White blood cell count 9.6, hematocrit 33.9, and platelet count 77. Sodium 144, potassium 3.9, chloride 107, CO2 of 22, BUN 90, creatinine 1.5, glucose 218. Chest x-ray continues to show bilateral infiltrates, although there has been improvement over the last 2 days. ASSESSMENT: 1. Acute respiratory distress syndrome. 2. Acute respiratory failure requiring mechanical ventilation. 3. Acute on chronic renal insufficiency. 4. Anemia due to blood loss. 5. Thrombocytopenia. PLAN: I will try to reduce his bilevel pressures. I have reduced his respiratory rate on the ventilator. He will continue antibiotics. Reglan has been added in hopes of restarting tube feeds. Job ID: [id number]
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
[2019-04-13] MEDS: Metoclopramide HCl 10 MG/2 ML VIAL IVP SCH ×3 (03:45→16:33)
[2019-04-13 04:55] LABS: Phosphorus 3.3 mg/dL (2.3-4.7)
[2019-04-13 04:58] LABS: ALT (SGPT) 34 U/L (8-55); AST (SGOT) 61 U/L (5-34); Albumin 2.7 g/dL (3.4-4.8); Alkaline Phosphatase 38 U/L (40-150); Anion Gap 12 mmol/L (10-20); BUN (Urea Nitrogen) 90 mg/dL (8.4-25.7); Bilirubin, Total 10.4 mg/dL (0.2-1.2); Calc. Creatinine Clearance 91 mL/min (70-130); Calcium 8.7 mg/dL (7.8-10.44); Carbon Dioxide 30 mmol/L (23-31); Chloride 113 mmol/L (98-107); Estimated GFR-MDRD 57; Globulin 2.9 g/dL (2.4-3.5); Glucose 170 mg/dL (80-115); Potassium 4.5 mmol/L (3.5-5.1); Protein, Total 5.6 g/dL (5.8-8.1); Sodium 150 mmol/L (136-145)
[2019-04-13] MEDS: methylPREDNISolone Sod Succ 40 MG VIAL IVP SCH ×2 (05:37→12:31)
[2019-04-13 05:54] LABS: Band 7 % (5-11); Hemoglobin 10.6 g/dL (14.0-18.0); Lymphocytes 2 % (21-51); MDiff Complete? YES; Mean Corpuscular HGB CONC 32.4 g/dL (32.0-36.0); Mean Corpuscular Hemoglobin 34.4 pg (27.0-31.0); Mean Platelet Volume 8.7 fL (7.4-10.4); Monocytes 5 % (0-10); Myelocyte 1 % (0-0); Neutrophil 85 % (42-75); Nucleated RBC 2 % (0); Platelet Count 78 thou/uL (130-400); Platelet Morphology Comment Appears Decreased; RBC Distribution Width 15.7 % (11.5-14.5); Red Blood Cell (RBC) Count 3.08 mill/uL (4.70-6.10); White Blood Cell (WBC) Count 10.8 thou/uL (4.8-10.8)
[2019-04-13] MEDS: Meropenem 2 GM in Sodium Chloride 0.9% 100 ML IVPB SCH ×2 (05:58→16:33)
[2019-04-13 06:23] VITALS: BMI 39.3
[2019-04-13 07:04] LABS: Base Excess (BEa) 4.8 mEq/L (-2.0 to +3.0); CO2 Tension 36.3 mmHg (35.0-45.0); Calcium, Ionized 1.16 mmol/L (1.12-1.30); Carboxyhemoglobin (COHb) 1.6 gm% (0.0-3.0); Hemoglobin (Hb) 11.5 g/dL (14.0-18.0); O2 Tension (PaO2) 81.1 mmHg (> 80.0); Potassium - ABG Lab 4.54 mmol/L (3.70-5.30); pH, Arterial 7.51 (7.35-7.45)
[2019-04-13 07:15] LABS: ALV-art Gradient 123.075 (0-20); Puncture Site RR
--- NOTE | 2019-04-13 07:59 | RAD ---
PORTABLE CHEST: Date: 04/13/19 PROVIDED CLINICAL HISTORY: Respiratory insufficiency. COMPARISON: 04/12/19. FINDINGS: Significant interval change with respect to the prior examination is not apparent. IMPRESSION: As above. POS: OFF
[2019-04-13 08:12] LABS: INR-International Normal Ratio 1.7; Prothrombin Time 19.6 SEC (12.0-14.7)
[2019-04-13] MEDS: Enoxaparin Sodium 30 MG/0.3 ML SYRINGE SC SCH (08:29)
[2019-04-13] MEDS: Famotidine/PF 20 mg/2ml Vial SLOW IVP SCH (08:29)
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
[2019-04-13] MEDS ORDERED: Morphine 4 MG/ML VIAL SLOW IVP PRN (15:18)
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
[2019-04-13] MEDS ORDERED: Scopolamine 1.5 mg/72 hour Patch TD SCH (15:30)
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
[2019-04-14 08:03] VITALS: BP 144/75; TEMP 97.5
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
[2019-04-14] MEDS ORDERED: Lorazepam 2 MG/ML VIAL SLOW IVP PRN (08:35)
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
== END 2019-04-14 14:57 | disposition expired | DRG 207 ==
LOC: ERS 15:01 → CCU 15:30 → T4-B 04-05 19:42 → CCU 04-06 12:43 → T4-B 04-13 20:04
PROVIDERS: ADMIT Internal Medicine; ATTEND Internal Medicine
PROC: 5A09457 Assistance with Respiratory Ventilation, 24-96 Consecutive Hours, Continuous Positive Airway Pressure (ICD-10-PCS; principal; 2019-04-04)
PROC: 5A1955Z Respiratory Ventilation, Greater than 96 Consecutive Hours (ICD-10-PCS; 2019-04-06)
PROC: 0B9D8ZX Drainage of Right Middle Lung Lobe, Via Natural or Artificial Opening Endoscopic, Diagnostic (ICD-10-PCS; 2019-04-06)
PROC: 0BH18EZ Insertion of Endotracheal Airway into Trachea, Via Natural or Artificial Opening Endoscopic (ICD-10-PCS; 2019-04-06)
PROC: 5A2204Z Restoration of Cardiac Rhythm, Single (ICD-10-PCS; 2019-04-08)
PROC: 0T9B70Z Drainage of Bladder with Drainage Device, Via Natural or Artificial Opening (ICD-10-PCS; 2019-04-11)
DX: J96.01 Acute respiratory failure with hypoxia (principal); J69.0 Pneumonitis due to inhalation of food and vomit; I61.5 Nontraumatic intracerebral hemorrhage, intraventricular; T75.1XXA Unspecified effects of drowning and nonfatal submersion, initial encounter; N17.9 Acute kidney failure, unspecified; E87.2 Acidosis; E87.0 Hyperosmolality and hypernatremia; Z66 Do not resuscitate; F17.290 Nicotine dependence, other tobacco product, uncomplicated; E66.9 Obesity, unspecified; R79.89 Other specified abnormal findings of blood chemistry; Z98.890 Other specified postprocedural states; W16.111A Fall into natural body of water striking water surface causing drowning and submersion, initial encounter; G47.00 Insomnia, unspecified; F10.229 Alcohol dependence with intoxication, unspecified; K70.30 Alcoholic cirrhosis of liver without ascites; I50.9 Heart failure, unspecified; E83.42 Hypomagnesemia; I48.91 Unspecified atrial fibrillation; E88.09 Other disorders of plasma-protein metabolism, not elsewhere classified; I95.9 Hypotension, unspecified; D64.9 Anemia, unspecified; E87.8 Other disorders of electrolyte and fluid balance, not elsewhere classified; D69.6 Thrombocytopenia, unspecified; Y93.89 Activity, other specified; Y92.89 Other specified places as the place of occurrence of the external cause; Z68.39 Body mass index [BMI] 39.0-39.9, adult; Z79.899 Other long term (current) drug therapy
CPT/HCPCS: 36415; 70450; 71045; 76700; 76856; 80053; 80202; 80307; 81001; 82140; 82550; 82553; 82570; 82805; 83605; 83735; 83880; 84100; 84156; 84300; 84484; 84540; 85007; 85025; 85027; 85610; 85730; 87040; 87070; 87086; 87205; 87899; 93005; 93010; 93306; 94002; 94003; 94640; 94660; 96360; 96361; J0282; J0360; J1650; J1940; J2060; J2185; J2250; J2270; J2354; J2543; J2704; J2765; J2920; J3010; J3370; J3475; J3480; J3490; J7050; J7070; J7620; P9047; S0028